=== PATIENT | female | born 1990 | race American Indian/Alaskan Native ===

== ENCOUNTER 2020-09-17 17:08 | Emergency (ER) | payer SELFPAY ==
[2020-09-17 19:19] LABS: Mean Corpuscular HGB Conc 30 % (30-34); Platelet Count 399 K/mm3 (140-440); Red Blood Count 4.85 M/mm3 (3.65-5.03)
[2020-09-17 19:23] LABS: Hemoglobin 9.3 gm/dl (10.1-14.3)
[2020-09-17 19:34] LABS: Hematocrit 30.8 % (30.3-42.9); Mean Corpuscular Volume 64 fl (79-97)
[2020-09-17 19:46] LABS: Alanine Aminotransferase 14 units/L (7-56); Albumin 4.9 g/dL (3.9-5); BUN/Creatinine Ratio 21; Blood Urea Nitrogen 17 mg/dL (7-17); Calcium 10.2 mg/dL (8.4-10.2); Hemolysis Index 10
[2020-09-17] MEDS ORDERED: ONDANSETRON 4 MG/2 ML INJ IV ONE (20:00)
[2020-09-17] MEDS ORDERED: MORPHINE 4 MG/1 ML INJ IV ONE (20:00)
[2020-09-17] MEDS ORDERED: FAMOTIDINE 20 MG/2 ML INJ IV ONE (20:00)
[2020-09-17] MEDS ORDERED: SODIUM CHLORIDE 0.9% 1000 ML 1,000 ML IV ONE (20:01)
[2020-09-17 21:33] LABS: Total Cells Counted 100
[2020-09-17 21:34] LABS: Anisocytosis 1+; Hypochromasia 2+
--- NOTE | 2020-09-17 21:54 | Cat Scan Report ---
CT ABDOMEN AND PELVIS WITH CONTRAST INDICATION / CLINICAL INFORMATION: Abdominal pain - N/V/D. TECHNIQUE: Axial CT images were obtained through the abdomen and pelvis after IV contrast. All CT scans at this location are performed using CT dose reduction for ALARA by means of automated exposure control. COMPARISON: None available. FINDINGS: LOWER CHEST: No significant abnormality. LIVER: No significant abnormality. GALLBLADDER: No significant abnormality. BILE DUCTS: No significant abnormality. PANCREAS: No significant abnormality. SPLEEN: No significant abnormality. ADRENALS: No significant abnormality. RIGHT KIDNEY / URETER: Multiple punctate calcified pelvicalyceal stones. No hydronephrosis. LEFT KIDNEY / URETER: Multiple punctate calcified pelvicalyceal stones. No hydronephrosis. STOMACH / SMALL BOWEL: No significant abnormality. No mechanical bowel obstruction. COLON: No significant abnormality. APPENDIX: No significant abnormality. Stranding noted in the right lower quadrant abdomen. PERITONEUM: Trace free fluid in the pelvis likely physiologic. No free air. No complex fluid collecti on. LYMPH NODES: No significant adenopathy. AORTA / ARTERIES: No significant abnormality. IVC / VEINS: No significant abnormality. URINARY BLADDER: Distended urinary bladder is noted. No calcite stone burden. REPRODUCTIVE ORGANS: Physiologic changes are noted of the uterus and bilateral ovaries with fluid not ed in the endometrial cavity. ADDITIONAL FINDINGS: None. SKELETAL SYSTEM: No significant abnormality. IMPRESSION: 1. Physiologic changes are noted of the uterus and bilateral ovaries with fluid noted in the endometr ial cavity. 2. Tiny punctate bilateral pelvicalyceal stones without evidence for hydronephrosis. Signer Name: Wilfrido Rodriguez MD Signed: 09/17/2020 9:49 PM Workstation Name: [id number]
[2020-09-17 21:57] LABS: Ovalocytes Rare; Target Cells Rare; Tear Drop Cells Rare
[2020-09-17 21:58] LABS: Burr Cells Rare; Platelet Estimate Consistent w Auto
[2020-09-17 22:24] LABS: Bilirubin,Urine NEG (Negative); Blood,Urine LG (Negative); Color,Urine Yellow (Yellow); Mucus,Urine 2+ /HPF; Urobilinogen,Urine < 2.0 mg/dL (<2.0)
--- NOTE | 2020-09-17 22:43 | Emergency Department Report ---
ED Abdominal Pain HPI - General Chief Complaint: Abdominal Pain Stated Complaint: STOMACH PAIN/CLOTS EXTREME PAIN Source: patient Mode of arrival: Ambulatory Limitations: No Limitations - History of Present Illness Initial Comments: Patient is a 30-year-old -Bul[place] female with a history of colitis who presents to the ED with complaint of acute onset persistent diffuse abdominal pain, that radiates to the lower abdomen diffusely with nausea and vomiting and mild diarrhea for the last 4 days. Patient also states that her symptoms began when she started having her menstrual cycle 4 days ago and states that she usually experiences similar symptoms every month whenever she has her menstrual cycle, and that the painful cramps usually leads to nausea and vomiting and sometimes diarrhea. Patient denies dizziness, syncope, fever, chills, dysuria, urinary frequency and urgency, vaginal discharge, low back pain, chest pain or shortness of breath, headache, sore throat or change in vision and dyspareunia. MD Complaint: abdominal pain, other (nausea, vomiting, diarrhea; dysmenorrhea) -: Sudden, days(s) (4) Location: LLQ, RLQ, suprapubic Radiation: LLQ, RLQ, suprapubic Migration to: no migration Severity scale (0 -10): 8 Quality: cramping, aching, sharp Consistency: constant Improves With: nothing Worsens With: nothing Context: other (currently on menstrual cycle) Associated Symptoms: denies other symptoms, nausea, vomiting, diarrhea. denies: fever, chills, dysuria, hematemesis, hematochezia, melena, hematuria, anorexia, syncope, other Treatments Prior to Arrival: NSAIDs - Related Data LMP Date: 09/14/20 Previous Rx's Medication Instructions Recorded Last Taken Type Dicyclomine [Bentyl] 20 mg PO Q6H PRN #24 tablet 09/17/20 Unknown Rx Ibuprofen [Motrin] 600 mg PO Q8H PRN #30 tablet 09/17/20 Unknown Rx Ondansetron [Zofran Odt] 4 mg PO Q6HR PRN #20 tab.rapdis 09/17/20 Unknown Rx cephALEXin [Keflex] 500 mg PO Q12HR #20 cap 09/17/20 Unknown Rx Allergies Allergy/AdvReac Type Severity Reaction Status Date / Time No Known Allergies Allergy Unverified 09/17/20 17:37 ED Review of Systems ROS: Stated complaint: STOMACH PAIN/CLOTS EXTREME PAIN Other details as noted in HPI Constitutional: denies: chills, fever Eyes: denies: eye pain, eye discharge, vision change ENT: denies: ear pain, throat pain Respiratory: denies: cough, shortness of breath, wheezing Cardiovascular: denies: chest pain, palpitations Endocrine: no symptoms reported Gastrointestinal: abdominal pain, nausea, vomiting, diarrhea Genitourinary: hematuria, abnormal menses (menstrual cycle), other (dys menorrhea). denies: urgency, dysuria, discharge Musculoskeletal: denies: back pain, joint swelling, arthralgia Skin: denies: rash, lesions Neurological: denies: headache, weakness, paresthesias Psychiatric: denies: anxiety, depression Hematological/Lymphatic: denies: easy bleeding, easy bruising ED Past Medical Hx - Past Medical History Previous Medical History?: No - Surgical History Past Surgical History?: No - Medications Home Medications: Home Medications Medication Instructions Recorded Confirmed Last Taken Type Dicyclomine [Bentyl] 20 mg PO Q6H PRN #24 tablet 09/17/20 Unknown Rx Ibuprofen [Motrin] 600 mg PO Q8H PRN #30 tablet 09/17/20 Unknown Rx Ondansetron [Zofran Odt] 4 mg PO Q6HR PRN #20 tab.rapdis 09/17/20 Unknown Rx cephALEXin [Keflex] 500 mg PO Q12HR #20 cap 09/17/20 Unknown Rx ED Physical Exam - General Limitations: No Limitations General appearance: alert, in no apparent distress - Head Head exam: Present: atraumatic, normocephalic, normal inspection - Eye Eye exam: Present: normal appearance, PERRL, EOMI Pupils: Present: normal accommodation - ENT ENT exam: Present: normal exam, normal orophraynx, mucous membranes moist, TM's normal bilaterally, normal external ear exam - Neck Neck exam: Present: normal inspection, full ROM - Respiratory Respiratory exam: Present: normal lung sounds bilaterally. Absent: respiratory distress, wheezes, rales, rhonchi, stridor, chest wall tenderness, accessory muscle use, prolonged expiratory - Cardiovascular Cardiovascular Exam: Present: regular rate, normal rhythm, normal heart sounds. Absent: systolic murmur, diastolic murmur, rubs, gallop - GI/Abdominal GI/Abdominal exam: Present: soft, tenderness (Palpable diffuse lower abdomen), normal bowel sounds. Absent: distended, guarding, rebound, rigid, hyperactive bowel sounds, organomegaly, mass, pulsatile mass - Speculum exam: Present: other (Pelvic exam deferred.) - Extremities Exam Extremities exam: Present: normal inspection, full ROM, normal capillary refill. Absent: tenderness, pedal edema, joint swelling, calf tenderness - Back Exam Back exam: Present: normal inspection, full ROM. Absent: tenderness, CVA tenderness (R), muscle spasm, vertebral tenderness - Neurological Exam Neurological exam: Present: alert, oriented X3, CN II-XII intact, normal gait, reflexes normal - Psychiatric Psychiatric exam: Present: normal affect, normal mood - Skin Skin exam: Present: warm, dry, intact, normal color. Absent: rash ED Course Vital Signs 09/17/20 22:59 Temperature 98.6 F Pulse Rate 82 Respiratory 17 Rate Blood Pressure 105/67 [Right] O2 Sat by Pulse 99 Oximetry ED Medical Decision Making - Lab Data Result diagrams: 09/17/20 18:59 09/17/20 18:59 - Radiology Data Radiology results: report reviewed, image reviewed Findings [facility] [address] [place] [address] Cat Scan Report Signed Patient: VJ PENNY MR# : [id number] : 1990 Acct:[id number] Age/Sex: 30 / F ADM Date: 09/17/20 Loc: ED Attending Dr: Ordering Physician: MARTHA ROMERO Date of Service: 09/17/20 Procedure(s): CT abdomen pelvis w con Accession Number(s): [id number] cc: MARTHA ROMERO CT ABDOMEN AND PELVIS WITH CONTRAST INDICATION / CLINICAL INFORMATION: Abdominal pain - N/V/D. TECHNIQUE: Axial CT images were obtained through the abdomen and pelvis after IV contrast. All CT scans at this location are performed using CT dose reduction for ALARA by means of automated exposure control. COMPARISON: None available. FINDINGS: LOWER CHEST: No significant abnormality. LIVER: No significant abnormality. GALLBLADDER: No significant abnormality. BILE DUCTS: No significant abnormality. PANCREAS: No significant abnormality. SPLEEN: No significant abnormality. ADRENALS: No significant abnormality. RIGHT KIDNEY / URETER: Multiple punctate calcified pelvicalyceal stones. No hydronephrosis. LEFT KIDNEY / URETER: Multiple punctate calcified pelvicalyceal stones. No hyd ronephrosis. STOMACH / SMALL BOWEL: No significant abnormality. No mechanical bowel obstruction. COLON: No significant abnormality. APPENDIX: No significant abnormality. Stranding noted in the right lower quadrant abdomen. PERITONEUM: Trace free fluid in the pelvis likely physiologic. No free air. No complex fluid collection. LYMPH NODES: No significant adenopathy. AORTA / ARTERIES: No significant abnormality. IVC / VEINS: No significant abnormality. URINARY BLADDER: Distended urinary bladder is noted. No calcite stone burden. REPRODUCTIVE ORGANS: Physiologic changes are noted of the uterus and bilateral ovaries with fluid noted in the endometrial cavity. ADDITIONAL FINDINGS: None. SKELETAL SYSTEM: No significant abnormality. IMPRESSION: 1. Physiologic changes are noted of the uterus and bilateral ovaries with fluid noted in the endometrial cavity. 2. Tiny punctate bilateral pelvicalyceal stones without evidence for hydronephrosis. Signer Name: Rodri Clement MD Signed: 09/17/2020 9:49 PM Workstation Name: [id number] Transcribed By: Dictated By: RODRI CLEMENT Electronically Authenticated By: RODRI CLEMENT Signed Date/Time: 09/17/202148 DD/ 41 TD/TT: - Medical Decision Making This is a 30-year-old -Bulgarian female with a history of colitis who presents to the ED with complaint of acute onset persistent diffuse abdominal pain, that radiates to the lower abdomen diffusely with nausea and vomiting and mild diarrhea for the last 4 days. Patient also states that her symptoms began when she started having her menstrual cycle 4 days ago and states that she usually experiences similar symptoms every month whenever she has her menstrual cycle, and that the painful cramps usually leads to nausea and vomiting and sometimes diarrhea. In the ED, patient is alert and oriented x3 and is not in distress. Patient however appears to be in significant pain. Patient was t reated for pain in the ED and also given normal saline 1 L IV bolus x1, and also was treated with antiemetics in the ED. Lab test results were reviewed and showed acute leukocytosis of 14,500 and mild urinary tract infection in urinalysis The abdomen pelvis CT scan with contrast showed physiologic changes noted of the uterus and bilateral ovaries with fluid noted in the endometrial cavity. It also showed tiny punctate bilateral pelvicalyceal stones without evidence for hydronephrosis. On reevaluation, patient's pain is well controlled medications. Patient has not had any nausea or vomiting while in the ED by actively treated with antiemetics. Patient was therefore discharged home on pain medications and antiemetics and advised to maintain a clear liquid diet for 12 to 24 hours, plenty of fluids, take medications as prescribed and follow-up with her primary care physician in 5 to 7 days for reevaluation. Patient was advised return to ED immediately if symptoms get worse. - Differential Diagnosis Appendicitis; ; UTI; Ovarian cyst; Colitis; Dysmenorrhea Critical care attestation.: If time is entered above; I have spent that time in minutes in the direct care of this critically ill patient, excluding procedure time. ED Disposition Clinical Impression: Acute bilateral lower abdominal pain, Nausea, vomiting and diarrhea, Severe dysmenorrhea, Acute urinary tract infection Disposition: TO HOME OR SELFCARE Is pt being admited?: No Does the pt Need Aspirin: No Condition: Stable Instructions: Nausea and Vomiting, Adult, [id number], Urinary Tract Infection, Adult, [id number], Abdominal Pain, Adult, [id number], Dysmenorrhea, [id number], Abdominal Pain (ED) Additional Instructions: All lab test results were reviewed and are all nonactionable except for mild urinary tract infection in urinalysis. The abdomen pelvis CT scan without contrast showed no acute abnormalities except for chronic kidney stones. Symptoms are likely due to dysmenorrhea clinic your symptoms worsen on triggering nausea and vomiting. Take medications with food, drink plenty of fluids and follow-up with your primary care physician in 5 to 7 days for reevaluation. Return to the ED immediately if symptoms get worse. Prescriptions: Dicyclomine [Bentyl] 20 mg PO Q6H PRN #24 tablet PRN Reason: abdominal pain cephALEXin [Keflex] 500 mg PO Q12HR #20 cap Ibuprofen [Motrin] 600 mg PO Q8H PRN #30 tablet PRN Reason: Pain Ondansetron [Zofran Odt] 4 mg PO Q6HR PRN #20 tab.rapdis PRN Reason: Nausea Referrals: [facility] [Provider Group] - 7-10 days Time of Disposition: 22:47 Print Language: HUNGARIAN
[2020-09-17 23:00] VITALS: BP 105/67
[2020-09-18] MEDS ORDERED: KETOROLAC 30 MG/1 ML INJ IV ONE (00:59)
== END 2020-09-18 00:30 | disposition home or self-care (01) ==
LOC: ED 17:08
DX: N39.0 Urinary tract infection, site not specified (principal); N94.6 Dysmenorrhea, unspecified; R19.7 Diarrhea, unspecified; R11.2 Nausea with vomiting, unspecified; R10.31 Right lower quadrant pain; R10.32 Left lower quadrant pain; Z79.899 Other long term (current) drug therapy
CPT/HCPCS: 36415; 74177; 80053; 81001; 83690; 84703; 85007; 85025; 87086; 96361; 96374; 96375; 99284; J2270; J2405; J7030; Q9967

== ENCOUNTER 2020-09-19 10:14 | Emergency (ER) | payer SELFPAY ==
[2020-09-19 11:21] LABS: Basophils # (Auto) 0.1 K/mm3 (0.0-0.1); Basophils % (Auto) 0.6 % (0.0-1.8); Eosinophils % (Auto) 0.3 % (0.0-4.3); Lymphocytes # (Auto) 1.4 K/mm3 (1.2-5.4); Lymphocytes % (Auto) 13.2 % (13.4-35.0); Mean Corpuscular HGB Conc 30 % (30-34); Monocytes # (Auto) 0.9 K/mm3 (0.0-0.8); Monocytes % (Auto) 8.2 % (0.0-7.3); Platelet Count 370 K/mm3 (140-440); Red Blood Count 4.78 M/mm3 (3.65-5.03)
[2020-09-19 11:24] LABS: Hematocrit 30.6 % (30.3-42.9); Hemoglobin 9.1 gm/dl (10.1-14.3); Mean Corpuscular Volume 64 fl (79-97); Red Cell Distribution Width 21.4 % (13.2-15.2)
--- NOTE | 2020-09-19 11:38 | Event Note ---
ED Screening Note ED Screening Note: n/v states meds not helping 2019 had a colonscopy +marijuana This initial assessment/diagnostic orders/clinical plan/treatment(s) is/are subject to change based on patients health status, clinical progression and re- assessment by fellow clinical providers in the ED. Further treatment and workup at subsequent clinical providers discretion. Patient/guardian urged not to elope from the ED as their condition may be serious if not clinically assessed and managed. Initial orders include: labs, UA, urine preg
[2020-09-19 11:41] LABS: Alanine Aminotransferase 22 units/L (7-56); Albumin 4.5 g/dL (3.9-5); Blood Urea Nitrogen 14 mg/dL (7-17); Hemolysis Index 3
[2020-09-19 11:46] LABS: BUN/Creatinine Ratio 20
[2020-09-19 12:50] LABS: Bacteria,Urine 1+ /HPF (Negative); Bilirubin,Urine NEG (Negative); Blood,Urine LG (Negative); Color,Urine Yellow (Yellow); Mucus,Urine 3+ /HPF
[2020-09-19] MEDS ORDERED: METOCLOPRAMIDE 10 MG/2 ML INJ IV ONE (13:34)
[2020-09-19] MEDS ORDERED: diphenhydrAMINE 50 MG/ML VIAL IV ONE (13:34)
[2020-09-19] MEDS ORDERED: cefTRIAXone/NS 1 GM/50 ML 1 GM/50 ML BAG IV ONE (13:34)
[2020-09-19] MEDS ORDERED: SODIUM CHLORIDE 0.9% 1000 ML 1,000 ML IV ONE (13:34)
--- NOTE | 2020-09-19 15:05 | Emergency Department Report ---
ED General Adult HPI - General Chief complaint: Abdominal Pain Stated complaint: CANT EAT/PAIN/NAUSEA Time Seen by Provider: 09/19/20 11:36 Source: patient Mode of arrival: Ambulatory Limitations: No Limitations - History of Present Illness Initial comments: Patient is a 30-year-old female presents emergency room with points of nausea, vomiting, diarrhea that began approximately 6 days ago. She has associated abdominal cramping but denies any severe pain. She states that she is not tolerating p.o. intake. She was evaluated in the emergency department 2 days ago and had a CT abdomen pelvis with IV contrast which showed no acute process. She was given prescriptions for UTI and for vomiting. She states that despite the Zofran she has continued to have vomiting. She is a current heavy marijuana smoker. No past medical history. No allergies medications. Severity scale (0 -10): 0 - Related Data Previous Rx's Medication Instructions Recorded Last Taken Type Dicyclomine [Bentyl] 20 mg PO Q6H PRN #24 tablet 09/17/20 Unknown Rx Ibuprofen [Motrin] 600 mg PO Q8H PRN #30 tablet 09/17/20 Unknown Rx Ondansetron [Zofran Odt] 4 mg PO Q6HR PRN #20 tab.rapdis 09/17/20 Unknown Rx cephALEXin [Keflex] 500 mg PO Q12HR #20 cap 09/17/20 Unknown Rx Metoclopramide [Reglan] 10 mg PO Q8HR PRN #12 tab 09/19/20 Unknown Rx Promethazine HCl [Phenergan SUPPOS] 25 mg RC Q8HR PRN #7 supp.rect 09/19/20 Unknown Rx Allergies Allergy/AdvReac Type Severity Reaction Status Date / Time No Known Allergies Allergy Unverified 09/17/20 17:37 ED Review of Systems ROS: Stated complaint: CANT EAT/PAIN/NAUSEA Other details as noted in HPI Comment: All other systems reviewed and negative ED Past Medical Hx - Past Medical History Previous Medical History?: No - Surgical History Past Surgical History?: No - Social History Smoking Status: Never Smoker Substance Use Type: None - Medications Home Medications: Home Medications Medication Instructions Recorded Confirmed Last Taken Type Dicyclomine [Bentyl] 20 mg PO Q6H PRN #24 tablet 09/17/20 Unknown Rx Ibuprofen [Motrin] 600 mg PO Q8H PRN #30 tablet 09/17/20 Unknown Rx Ondansetron [Zofran Odt] 4 mg PO Q6HR PRN #20 tab.rapdis 09/17/20 Unknown Rx cephALEXin [Keflex] 500 mg PO Q12HR #20 cap 09/17/20 Unknown Rx Metoclopramide [Reglan] 10 mg PO Q8HR PRN #12 tab 09/19/20 Unknown Rx Promethazine HCl [Phenergan SUPPOS] 25 mg RC Q8HR PRN #7 supp.rect 09/19/20 Unknown Rx ED Physical Exam - General Limitations: No Limitations General appearance: alert, in no apparent distress - Head Head exam: Present: atraumatic, normocephalic - Eye Eye exam: Present: normal appearance - ENT ENT exam: Present: mucous membranes moist - Respiratory Respiratory exam: Present: normal lung sounds bilaterally. Absent: respiratory distress, wheezes, rales, rhonchi, stridor, chest wall tenderness, accessory muscle use, decreased breath sounds, prolonged expiratory - Cardiovascular Cardiovascular Exam: Present: regular rate, normal rhythm, normal heart sounds. Absent: systolic murmur, diastolic murmur, rubs, gallop - GI/Abdominal GI/Abdominal exam: Present: soft, normal bowel sounds. Absent: distended, tenderness, guarding, rebound, rigid - Neurological Exam Neurological exam: Present: alert, oriented X3 - Psychiatric Psychiatric exam: Present: normal affect, normal mood - Skin Skin exam: Present: warm, dry, intact ED Course Vital Signs 09/19/20 09/19/20 10:19 18:11 Temperature 98.0 F Pulse Rate 54 L 63 Respiratory 18 18 Rate Blood Pressure 123/70 121/80 [Left] O2 Sat by Pulse 100 100 Oximetry ED Medical Decision Making - Lab Data Result diagrams: 09/19/20 11:00 09/19/20 11:00 Lab Results 09/19/20 09/19/20 09/19/20 Range/Units 11:00 11:00 12:12 WBC 10.5 (4.5-11.0) K/mm3 RBC 4.78 (3.65-5.03) M/mm3 Hgb 9.1 L (10.1-14.3) gm/dl Hct 30.6 (30.3-42.9) % MCV 64 L (79-97) fl MCH 19 L (28-32) pg MCHC 30 (30-34) % RDW 21.4 H (13.2-15.2) % Plt Count 370 (140-440) K/mm3 Lymph % (Auto) 13.2 L (13.4-35.0) % [place] % (Auto) 8.2 H (0.0-7.3) % Eos % (Auto) 0.3 (0.0-4.3) % Baso % (Auto) 0.6 (0.0-1.8) % Lymph # (Auto) 1.4 (1.2-5.4) K/mm3 [place] # (Auto) 0.9 H (0.0-0.8) K/mm3 Eos # (Auto) 0.0 (0.0-0.4) K/mm3 Baso # (Auto) 0.1 (0.0-0.1) K/mm3 Seg Neutrophils % 77.7 H (40.0-70.0) % Seg Neutrophils # 8.2 H (1.8-7.7) K/mm3 Sodium 137 (137-145) mmol/L Potassium 3.4 L (3.6-5.0) mmol/L Chloride 103.0 (98-107) mmol/L Carbon Dioxide 23 (22-30) mmol/L Anion Gap 14 mmol/L BUN 14 (7-17) mg/dL Creatinine 0.7 (0.6-1.2) mg/dL Estimated GFR > 60 ml/min BUN/Creatinine Ratio 20 % Glucose 95 (65-100) mg/dL Calcium 10.0 (8.4-10.2) mg/dL Total Bilirubin 0.90 (0.1-1.2) mg/dL AST 26 (5-40) units/L ALT 22 (7-56) units/L Alkaline Phosphatase 90 (35-129) units/L Total Protein 8.3 H (6.3-8.2) g/dL Albumin 4.5 (3.9-5) g/dL Albumin/Globulin Ratio 1.2 % Lipase 33 (13-60) units/L Urine Color Yellow (Yellow) Urine Turbidity Slightly-cloudy (Clear) Urine pH 5.0 (5.0-7.0) Ur Specific [place] 1.026 (1.003-1.030) Urine Protein 100 mg/dl (Negative) mg/dL Urine Glucose (UA) Neg (Negative) mg/dL Urine Ketones Tr (Negative) mg/dL Urine Blood Lg (Negative) Urine Nitrite Neg (Negative) Urine Bilirubin Neg (Negative) Urine Urobilinogen 2.0 (<2.0) mg/dL Ur Leukocyte Esterase Sm (Negative) Urine WBC (Auto) 14.0 H (0.0-6.0) /HPF Urine RBC (Auto) 6.0 (0.0-6.0) /HPF U Epithel Cells (Auto) 22.0 H (0-13.0) /HPF Urine Bacteria (Auto) 1+ (Negative) /HPF Urine Mucus 3+ /HPF - Medical Decision Making Patient is a 30-year-old female presents emergency room with points of nausea, vomiting, diarrhea that began approximately 6 days ago. She has associated abdominal cramping but denies any severe pain. She states that she is not tolerating p.o. intake. She was evaluated in the emergency department 2 days ago and had a CT abdomen pelvis with IV contrast which showed no acute process. She was given prescriptions for UTI and for vomiting. She states that despite the Zofran she has continued to have vomiting. She is a current heavy marijuana smoker. No past medical history. No allergies medications. Vitals are stable. No abnormality on physical exam as documented in chart. Labs with mild hypokalemia, otherwise normal. Repleted with K-Dur. She has no leukocytosis. UA does have small amount of white blood cells and small leukocyte esterase but there are many epithelial cells, could be due to contamination. She just began taking Keflex yesterday. Patient given 1 L IV fluids, antiemetics, ceftriaxone. Patient was feeling much better and ready to go home. She had no further episodes of vomiting while the emergency department. She was able to tolerate p.o. intake without difficulty. Symptoms likely related to viral gastroenteritis versus cannabinoid hyperemesis. Patient given prescription for reglan and Phenergan suppositories. Advised patient Please use medication as prescribed as needed. Increase your fluid intake over the next several days. Eat a bland liquid diet and slowly advance your diet as tolerated. Avoid anything sugary or greasy. Please stop smoking marijuana. Follow-up with a primary care doctor. Follow-up with a GI doctor. Return to emergency room for any new or worsening symptoms. Critical care attestation.: If time is entered above; I have spent that time in minutes in the direct care of this critically ill patient, excluding procedure time. ED Disposition Clinical Impression: Nausea vomiting and diarrhea Disposition: TO HOME OR SELFCARE Is pt being admited?: No Does the pt Need Aspirin: No Condition: Stable Instructions: Viral Gastroenteritis, Adult, Cannabinoid Hyperemesis Syndrome, Abdominal Pain (ED) Additional Instructions: Please use medication as prescribed as needed. Increase your fluid intake over the next several days. Eat a bland liquid diet and slowly advance your diet as tolerated. Avoid anything sugary or greasy. Please stop smoking marijuana. Follow-up with a primary care doctor. Follow-up with a GI doctor. Return to emergency room for any new or worsening symptoms. Prescriptions: Promethazine HCl [Phenergan SUPPOS] 25 mg RC Q8HR PRN #7 supp.rect PRN Reason: Nausea And Vomiting Metoclopramide [Reglan] 10 mg PO Q8HR PRN #12 tab PRN Reason: Nausea And Vomiting Referrals: PRIMARY MD KIANNA [Primary Care Provider] - 2-3 Days [facility] [Provider Group] - 2-3 Days CHRISS TRIVEDI MD [Staff Physician] - 2-3 Days [facility] [Provider Group] - 2-3 Days Forms: Work/School Release Form(ED) Time of Disposition: 16:58 Print Language: VIETNAMESE
[2020-09-19] MEDS ORDERED: POTASSIUM CHLORIDE ER 20 MEQ TAB PO ONE (16:11)
[2020-09-19] MEDS ORDERED: ONDANSETRON 4 MG/2 ML INJ IV ONE (17:08)
[2020-09-19 18:12] VITALS: BP 121/80
== END 2020-09-19 18:00 | disposition home or self-care (01) ==
LOC: ED 10:14
DX: R11.2 Nausea with vomiting, unspecified (principal); R19.7 Diarrhea, unspecified; Z79.899 Other long term (current) drug therapy
CPT/HCPCS: 36415; 80053; 81001; 83690; 85025; 87086; 96365; 96366; 96375; 99283; J0696; J1200; J2405; J2765; J7030

== ENCOUNTER 2020-12-04 14:15 | Emergency (ER) | payer SELFPAY ==
--- NOTE | 2020-12-04 15:24 | Event Note ---
ED Screening Note Date of service: 12/04/20 Time: 15:22 ED Screening Note: 30-year-old -L[place] female presents to the emergency room for a 2-day history of lower abdominal pain with nausea and vomiting. Patient states she is currently on her menstrual period started 12/02/2020. Patient does admit that she smokes cigarettes and smokes weed. States she last smoked weed was yesterday. Patient was seen here last month for the same complaints. This initial assessment/diagnostic orders/clinical plan/treatment(s) is/are subject to change based on patients health status, clinical progression and re- assessment by fellow clinical providers in the ED. Further treatment and workup at subsequent clinical providers discretion. Patient/guardian urged not to elope from the ED as their condition may be serious if not clinically assessed and managed. Initial orders include:
[2020-12-04 16:20] LABS: Mean Corpuscular HGB Conc 30 % (30-34); Mean Corpuscular Volume 70 fl (79-97); Platelet Count 287 K/mm3 (140-440); Red Blood Count 4.39 M/mm3 (3.65-5.03)
[2020-12-04 16:22] LABS: Hematocrit 30.7 % (30.3-42.9); Hemoglobin 9.2 gm/dl (10.1-14.3); Red Cell Distribution Width 23.2 % (13.2-15.2)
[2020-12-04 16:41] LABS: Alanine Aminotransferase 17 units/L (7-56); Albumin 4.5 g/dL (3.9-5); Blood Urea Nitrogen 11 mg/dL (7-17); Calcium 9.5 mg/dL (8.4-10.2); Hemolysis Index 16
[2020-12-04 16:46] LABS: BUN/Creatinine Ratio 16
[2020-12-04] MEDS ORDERED: MORPHINE 4 MG/1 ML INJ IV ONE ×2 (16:50→23:56)
[2020-12-04] MEDS ORDERED: ONDANSETRON 4 MG/2 ML INJ IV ONE ×2 (16:50→23:56)
[2020-12-04] MEDS ORDERED: SODIUM CHLORIDE 0.9% 1000 ML 1,000 ML IV ONE ×2 (16:50→23:56)
[2020-12-04 17:17] LABS: Amphetamine Screen,Urine Negative; Benzodiazepines Screen,Urine Negative; Methadone Screen,Urine Negative; Opiate Screen,Urine Negative
[2020-12-04 17:24] LABS: Bilirubin,Urine NEG (Negative); Blood,Urine SM (Negative); Color,Urine Yellow (Yellow); Mucus,Urine 3+ /HPF; Urobilinogen,Urine < 2.0 mg/dL (<2.0)
[2020-12-04] MEDS ORDERED: ONDANSETRON 4 MG ODT TAB PO ONE (17:27)
[2020-12-04 17:28] LABS: Cannabinoid Screen,Urine Positive; Cocaine Screen,Urine Negative
[2020-12-04 17:31] LABS: HCG Qualitative,Urine Negative (Negative)
[2020-12-04 19:01] LABS: Total Cells Counted 100
[2020-12-04 19:02] LABS: Anisocytosis 2+; Hypochromasia 2+
[2020-12-04 19:03] LABS: Burr Cells Rare; Ovalocytes Rare; Tear Drop Cells Rare
[2020-12-04 19:05] LABS: Large Platelets Rare; Platelet Estimate Cons
--- NOTE | 2020-12-04 21:14 | Cat Scan Report ---
CT ABDOMEN AND PELVIS WITH CONTRAST INDICATION / CLINICAL INFORMATION: Patient complains of lower abd pain with N/V, Leukocytosis. TECHNIQUE: Axial CT images were obtained through the abdomen and pelvis after IV contrast. All CT scans at this location are performed using CT dose reduction for ALARA by means of automated exposure control. COMPARISON: 09/17/2020 FINDINGS: LOWER CHEST: No significant abnormality. LIVER: No significant abnormality. GALLBLADDER: No significant abnormality. BILE DUCTS: No significant abnormality. PANCREAS: No significant abnormality. SPLEEN: No significant abnormality. ADRENALS: No significant abnormality. RIGHT KIDNEY / URETER: Interval passage of previously noted punctate pelvicalyceal stones. No hydrone phrosis. LEFT KIDNEY / URETER: Interval passage of previously noted punctate pelvicalyceal stones. No hydronep hrosis. STOMACH / SMALL BOWEL: No significant abnormality. No mechanical bowel obstruction. COLON: No significant abnormality. Distal colon is collapsed. APPENDIX: No significant abnormality. PERITONEUM: Free fluid in the pelvis likely physiologic. No free air. No fluid collection. LYMPH NODES: No significant adenopathy. AORTA / ARTERIES: No significant abnormality. IVC / VEINS: No significant abnormality. URINARY BLADDER: No significant abnormality. No calcified stone burden. REPRODUCTIVE ORGANS: Physiologic changes are again noted of the uterus and bilateral ovaries. Fluid n oted in the endometrial and vaginal canals, similar to prior exam. ADDITIONAL FINDINGS: None. SKELETAL SYSTEM: No significant abnormality. IMPRESSION: 1. No acute inflammatory process of the abdomen or pelvis. 2. Previously noted punctate bilateral pelvicalyceal stones are no longer visualized. No hydronephros is. 3. Physiologic changes to the uterus and bilateral ovaries are again noted. Signer Name: Wilfrido Rodriguez MD Signed: 12/04/2020 9:10 PM Workstation Name: [id number]
[2020-12-04] MEDS ORDERED: ONDANSETRON 4 MG ODT TAB PO STA (23:47)
--- NOTE | 2020-12-04 23:59 | Emergency Department Report ---
HPI - General Chief Complaint: Abdominal Pain Time Seen by Provider: 12/04/20 23:50 - HPI HPI: This is a 30-year-old -[place] male presents to the emergency department with a complaint of lower abdominal pain, nausea and vomiting that has been goi ng on for the past 1 to 2 days. The patient says that this happens often during her menstrual cycles. Her last menstrual cycle was started on 12/02. She does have some vaginal bleeding but denies any dysuria, vaginal discharge, fever, lower extremity swelling, chest pain, shortness of breath. She has not taken anything for symptoms prior to presentation. She says that the abdominal pain is 10 out of 10 in intensity. No known aggravating or alleviating factors. No recent travel or sick contacts at home. She does not have a primary care physician or [facility] for follow-up. ED Past Medical Hx - Past Medical History Previous Medical History?: No - Surgical History Past Surgical History?: No - Social History Smoking Status: Never Smoker Substance Use Type: None - Medications Home Medications: Home Medications Medication Instructions Recorded Confirmed Last Taken Type Ibuprofen [Motrin] 600 mg PO Q8H PRN #30 tablet 09/17/20 Unknown Rx cephALEXin [Keflex] 500 mg PO Q12HR #20 cap 09/17/20 Unknown Rx Metoclopramide [Reglan] 10 mg PO Q8HR PRN #12 tab 09/19/20 Unknown Rx Promethazine HCl [Phenergan SUPPOS] 25 mg RC Q8HR PRN #7 supp.rect 09/19/20 Unknown Rx Dicyclomine [Bentyl] 20 mg PO Q6H PRN #20 tablet 12/05/20 Unknown Rx Ondansetron [Zofran ODT TAB] 4 mg PO Q6HR PRN #15 tab.rapdis 12/05/20 Unknown Rx ED Review of Systems ROS: Stated complaint: VOMITING/STOMACH PAIN Other details as noted in HPI Comment: All other systems reviewed and negative Constitutional: denies: chills, fever Eyes: denies: eye pain, vision change ENT: denies: ear pain, throat pain Respiratory: denies: cough, shortness of breath Cardiovascular: denies: chest pain, palpitations Gastrointestinal: abdominal pain, nausea, vomiting Genitourinary: other (Dysmenorrhea). denies: dysuria, discharge Musculoskeletal: denies: back pain, arthralgia Skin: denies: rash, lesions Neurological: denies: headache, weakness Physical Exam - Physical Exam Vital Signs: Vital Signs 12/04/20 14:36 Temperature 97.7 F Pulse Rate 51 L Respiratory 18 Rate Blood Pressure 108/63 [Right] O2 Sat by Pulse 98 Oximetry Physical Exam: GENERAL: The patient is well-developed well-nourished. HENT: Normocephalic. Atraumatic. Patient has moist mucous membranes. EYES: Extraocular motions are intact. NECK: Supple. Trachea is midline. CHEST/LUNGS: Clear to auscultation. There is no respiratory distress noted. HEART/CARDIOVASCULAR: Regular. There is no tachycardia. There is no murmur. ABDOMEN: Abdomen is soft. Lower abdominal tenderness to palpation. No guarding. Patient has normal bowel sounds. There is no abdominal distention. SKIN: Skin is warm and dry. NEURO: The patient is awake, alert, and oriented. The patient is cooperative. The patient has no focal neurologic deficits. Normal speech. MUSCULOSKELETAL: There is no tenderness or deformity. There is no limitation range of motion. ED Course Vital Signs 12/04/20 14:36 Temperature 97.7 F Pulse Rate 51 L Respiratory 18 Rate Blood Pressure 108/63 [Right] O2 Sat by Pulse 98 Oximetry ED Medical Decision Making - Lab Data Result diagrams: 12/04/20 15:58 12/04/20 15:58 Lab Results 12/04/20 12/04/20 12/04/20 Range/Units 15:58 15:58 16:30 WBC 19.1 H (4.5-11.0) K/mm3 RBC 4.39 (3.65-5.03) M/mm3 Hgb 9.2 L (10.1-14.3) gm/dl Hct 30.7 (30.3-42.9) % MCV 70 L (79-97) fl MCH 21 L (28-32) pg MCHC 30 (30-34) % RDW 23.2 H (13.2-15.2) % Plt Count 287 (140-440) K/mm3 Add Manual Diff Complete Total Counted 100 Seg Neutrophils % Scaffold Setter Seg Neuts % (Manual) 96.0 H (40.0-70.0) % Lymphocytes % (Manual) 3.0 L (13.4-35.0) % Monocytes % (Manual) 1.0 (0.0-7.3) % Nucleated RBC % Not Reportable Seg Neutrophils # Man 18.3 H (1.8-7.7) K/mm3 Band Neutrophils # 0.0 K/mm3 Lymphocytes # (Manual) 0.6 L (1.2-5.4) K/mm3 Abs React Lymphs (Man) 0.0 K/mm3 Monocytes # (Manual) 0.2 (0.0-0.8) K/mm3 Eosinophils # (Manual) 0.0 (0.0-0.4) K/mm3 Basophils # (Manual) 0.0 (0.0-0.1) K/mm3 Metamyelocytes # 0.0 K/mm3 Myelocytes # 0.0 K/mm3 Promyelocytes # 0.0 K/mm3 Blast Cells # 0.0 K/mm3 WBC Morphology Not Reportable Hypersegmented Neuts Not Reportable Hyposegmented Neuts Not Reportable Hypogranular Neuts Not Reportable Smudge Cells Not Reportable Toxic Granulation Not Reportable Toxic Vacuolation Not Reportable Dohle Bodies Not Reportable Pelger-Huet Anomaly Not Reportable Brenda Rods Not Reportable Platelet Estimate Cons Clumped Platelets Not Reportable Plt Clumps, EDTA Not Reportable Large Platelets Rare Giant Platelets Not Reportable Platelet Satelliting Not Reportable Plt Morphology Comment Not Reportable RBC Morphology Not Reportable Dimorphic RBCs Not Reportable Polychromasia Not Reportable Hypochromasia 2+ Poikilocytosis Not Reportable Anisocytosis 2+ Microcytosis Not Reportable Macrocytosis Not Reportable Spherocytes Not Reportable Pappenheimer Bodies Not Reportable Sickle Cells Not Reportable Target Cells Not Reportable Tear Drop Cells Rare Ovalocytes Rare Helmet Cells Not Reportable Rea-Ludell Bodies Not Reportable Wayside Rings Not Reportable Vitaly Cells Rare Bite Cells Not Reportable Crenated Cell Not Reportable Elliptocytes Rare Acanthocytes (Spur) Rare Rouleaux Not Reportable Hemoglobin C Crystals Not Reportable Schistocytes Not Reportable Malaria parasites Not Reportable Bruce Bodies Not Reportable Hem Pathologist Commnt No Sodium 139 (137-145) mmol/L Potassium 4.0 (3.6-5.0) mmol/L Chloride 105.7 (98-107) mmol/L Carbon Dioxide 20 L (22-30) mmol/L Anion Gap 17 mmol/L BUN 11 (7-17) mg/dL Creatinine 0.7 (0.6-1.2) mg/dL Estimated GFR > 60 ml/min BUN/Creatinine Ratio 16 % Glucose 143 H (65-100) mg/dL Calcium 9.5 (8.4-10.2) mg/dL Total Bilirubin 0.40 (0.1-1.2) mg/dL AST 22 (5-40) units/L ALT 17 (7-56) units/L Alkaline Phosphatase 87 (35-129) units/L Total Protein 7.5 (6.3-8.2) g/dL Albumin 4.5 (3.9-5) g/dL Albumin/Globulin Ratio 1.5 % Lipase 21 (13-60) units/L Urine Color Yellow (Yellow) Urine Turbidity Clear (Clear) Urine pH 6.0 (5.0-7.0) Ur Specific [place] 1.027 (1.003-1.030) Urine Protein 100 mg/dl (Negative) mg/dL Urine Glucose (UA) Neg (Negative) mg/dL Urine Ketones 20 (Negative) mg/dL Urine Blood Sm (Negative) Urine Nitrite Neg (Negative) Urine Bilirubin Neg (Negative) Urine Urobilinogen < 2.0 (<2.0) mg/dL Ur Leukocyte Esterase Neg (Negative) Urine WBC (Auto) 3.0 (0.0-6.0) /HPF Urine RBC (Auto) 86.0 (0.0-6.0) /HPF U Epithel Cells (Auto) 2.0 (0-13.0) /HPF Urine Mucus 3+ /HPF Urine HCG, Qual Negative (Negative) Urine Opiates Screen Urine Methadone Screen Ur Barbiturates Screen Ur Phencyclidine Scrn Ur Amphetamines Screen U Benzodiazepines Scrn Urine Cocaine Screen U Marijuana (THC) Screen Drugs of Abuse Note 12/04/20 Range/Units 16:30 WBC (4.5-11.0) K/mm3 RBC (3.65-5.03) M/mm3 Hgb (10.1-14.3) gm/dl Hct (30.3-42.9) % MCV (79-97) fl MCH (28-32) pg MCHC (30-34) % RDW (13.2-15.2) % Plt Count (140-440) K/mm3 Add Manual Diff Total Counted Seg Neutrophils % Seg Neuts % (Manual) (40.0-70.0) % Lymphocytes % (Manual) (13.4-35.0) % Monocytes % (Manual) (0.0-7.3) % Nucleated RBC % Seg Neutrophils # Man (1.8-7.7) K/mm3 Band Neutrophils # K/mm3 Lymphocytes # (Manual) (1.2-5.4) K/mm3 Abs React Lymphs (Man) K/mm3 Monocytes # (Manual) (0.0-0.8) K/mm3 Eosinophils # (Manual) (0.0-0.4) K/mm3 Basophils # (Manual) (0.0-0.1) K/mm3 Metamyelocytes # K/mm3 Myelocytes # K/mm3 Promyelocytes # K/mm3 Blast Cells # K/mm3 WBC Morphology Hypersegmented Neuts Hyposegmented Neuts Hypogranular Neuts Smudge Cells Toxic Granulation Toxic Vacuolation Dohle Bodies Pelger-Huet Anomaly Brenda Rods Platelet Estimate Clumped Platelets Plt Clumps, EDTA Large Platelets Giant Platelets Platelet Satelliting Plt Morphology Comment RBC Morphology Dimorphic RBCs Polychromasia Hypochromasia Poikilocytosis Anisocytosis Microcytosis Macrocytosis Spherocytes Pappenheimer Bodies Sickle Cells Target Cells Tear Drop Cells Ovalocytes Helmet Cells Rea-Ludell Bodies Wayside Rings Vitaly Cells Bite Cells Crenated Cell Elliptocytes Acanthocytes (Spur) Rouleaux Hemoglobin C Crystals Schistocytes Malaria parasites Bruce Bodies Hem Pathologist Commnt Sodium (137-145) mmol/L Potassium (3.6-5.0) mmol/L Chloride (98-107) mmol/L Carbon Dioxide (22-30) mmol/L Anion Gap mmol/L BUN (7-17) mg/dL Creatinine (0.6-1.2) mg/dL Estimated GFR ml/min BUN/Creatinine Ratio % Glucose (65-100) mg/dL Calcium (8.4-10.2) mg/dL Total Bilirubin (0.1-1.2) mg/dL AST (5-40) units/L ALT (7-56) units/L Alkaline Phosphatase (35-129) units/L Total Protein (6.3-8.2) g/dL Albumin (3.9-5) g/dL Albumin/Globulin Ratio % Lipase (13-60) units/L Urine Color (Yellow) Urine Turbidity (Clear) Urine pH (5.0-7.0) Ur Specific [place] (1.003-1.030) Urine Protein (Negative) mg/dL Urine Glucose (UA) (Negative) mg/dL Urine Ketones (Negative) mg/dL Urine Blood (Negative) Urine Nitrite (Negative) Urine Bilirubin (Negative) Urine Urobilinogen (<2.0) mg/dL Ur Leukocyte Esterase (Negative) Urine WBC (Auto) (0.0-6.0) /HPF Urine RBC (Auto) (0.0-6.0) /HPF U Epithel Cells (Auto) (0-13.0) /HPF Urine Mucus /HPF Urine HCG, Qual (Negative) Urine Opiates Screen Negative Urine Methadone Screen Negative Ur Barbiturates Screen Negative Ur Phencyclidine Scrn Negative Ur Amphetamines Screen Negative U Benzodiazepines Scrn Negative Urine Cocaine Screen Negative U Marijuana (THC) Screen Positive Drugs of Abuse Note Disclamer - Radiology Data Radiology results: report reviewed CT ABDOMEN AND PELVIS WITH CONTRAST INDICATION / CLINICAL INFORMATION: Patient complains of lower abd pain with N/V, Leukocytosis. TECHNIQUE: Axial CT images were obtained through the abdomen and pelvis after IV contrast. All CT scans at this location are performed using CT dose reduction for ALARA by means of autom ated exposure control. COMPARISON: 09/17/2020 FINDINGS: LOWER CHEST: No significant abnormality. LIVER: No significant abnormality. GALLBLADDER: No significant abnormality. BILE DUCTS: No significant abnormality. PANCREAS: No significant abnormality. SPLEEN: No significant abnormality. ADRENALS: No significant abnormality. RIGHT KIDNEY / URETER: Interval passage of previously noted punctate pelvicalyceal stones. No hydronephrosis. LEFT KIDNEY / URETER: Interval passage of previously noted punctate pelvicalyceal stones. No hydronephrosis. STOMACH / SMALL BOWEL: No significant abnormality. No mechanical bowel obstruction. COLON: No significant abnormality. Distal colon is collapsed. APPENDIX: No significant abnormality. PERITONEUM: Free fluid in the pelvis likely physiologic. No free air. No fluid collection. LYMPH NODES: No significant adenopathy. AORTA / ARTERIES: No significant abnormality. IVC / VEINS: No significant abnormality. URINARY BLADDER: No significant abnormality. No calcified stone burden. REPRODUCTIVE ORGANS: Physiologic changes are again noted of the uterus and bilateral ovaries. Fluid noted in the endometrial and vaginal canals, similar to prior exam. ADDITIONAL FINDINGS: None. SKELETAL SYSTEM: No significant abnormality. IMPRESSION: 1. No acute inflammatory process of the abdomen or pelvis. 2. Previously noted punctate bilateral pelvicalyceal stones are no longer visualized. No hydronephrosis. 3. Physiologic changes to the uterus and bilateral ovaries are again noted. - Medical Decision Making This patient presents to the emergency department with abdominal pain, nausea and vomiting that has been occurring since her most recent menstrual cycle started. She also has a history of this occurring with most of her menstrual cycles. There is some reproducible abdominal tenderness to palpation. However the abdomen is soft, nondistended and nontoxic in appearance. Patient's labs shows a leukocytosis of 19,000. No bandemia. The rest of the labs are mostly unremarkable including her metabolic panel, urinalysis and the patient is not . There is some hematuria seen but the patient is currently in the midst of her menstrual cycle. There are also 20 ketones in the urine showing mild dehydration. Patient had a CT scan of the abdomen and pelvis with IV contrast that did not show any acute intra-abdominal or pelvic process/pathology. An IV was placed and the patient was given some IV fluid resuscitation, IV analgesia and IV antiemetic. She was reevaluated multiple times over the hours and is feeling improved. She was able to pass an oral challenge. Patient will be discharged home with antiemetics and something for her abdominal discomfort. She has been instructed to increase oral rehydration. She has been instructed to follow-up with primary care and to return to the emergency department with any worsening of her symptoms or with any acute distress. Critical care attestation.: If time is entered above; I have spent that time in minutes in the direct care of this critically ill patient, excluding procedure time. ED Disposition Clinical Impression: Dysmenorrhea, Dehydration Nausea & vomiting Qualifiers: Vomiting type: unspecified Vomiting Intractability: unspecified Qualified Code(s): R11.2 - Nausea with vomiting, unspecified Abdominal pain Qualifiers: Abdominal location: lower abdomen, unspecified Qualified Code(s): R10.30 - Low er abdominal pain, unspecified Disposition: TO HOME OR SELFCARE Is pt being admited?: No Condition: Stable Instructions: Abdominal Pain, Adult, Nausea and Vomiting, Adult, Dysmenorrhea, Dehydration, Adult, Abdominal Pain (ED) Additional Instructions: Please follow-up with a primary care physician in the next few days. I have given you a referral for a local primary care physician and a local primary care clinic. I have also given you a referral for you a few different local [facility] groups. Increase your oral rehydration. You have been prescribed a medication that is sedating and therefore should not be taken prior to driving, working, and responsible for children and in no way should be mixed with alcohol of any quantity. Return to the emergency department with any worsening of your symptoms, new or concerning symptoms not addressed during this current emergency department visit, or with any acute distress. Prescriptions: Dicyclomine [Bentyl] 20 mg PO Q6H PRN #20 tablet PRN Reason: abdominal pain Ondansetron [Zofran ODT TAB] 4 mg PO Q6HR PRN #15 tab.rapdis PRN Reason: Nausea Referrals: PRIMARY CAREMD [Primary Care Provider] - 3-5 Days NATIVIDAD LAKHANI MD [Staff Physician] - 3-5 Days [facility] [Provider Group] - 3-5 Days [facility] [Provider Group] - 3-5 Days [facility] [Provider Group] - 3-5 Days Time of Disposition: 01:45
[2020-12-05 01:32] VITALS: BP 103/64
[2020-12-05] MEDS ORDERED: ONDANSETRON 4 MG/2 ML INJ IV ONE (01:42)
[2020-12-05] MEDS ORDERED: ONDANSETRON 4 MG ODT TAB PO ONE (01:48)
== END 2020-12-05 02:06 | disposition home or self-care (01) ==
LOC: ED 14:15
DX: N94.6 Dysmenorrhea, unspecified (principal); E86.0 Dehydration; R10.30 Lower abdominal pain, unspecified; R11.2 Nausea with vomiting, unspecified; Z79.899 Other long term (current) drug therapy
CPT/HCPCS: 36415; 74177; 80053; 80307; 81001; 81025; 83690; 85007; 85025; 96361; 96374; 96375; 99284; J2270; J2405; J7030; Q9967; Q0162

== ENCOUNTER 2020-12-05 12:34 | Emergency (ER) | payer SELFPAY ==
[2020-12-05] MEDS ORDERED: HALOPERIDOL LACTATE 5 MG/1 ML INJ IM ONE (13:05)
[2020-12-05] MEDS ORDERED: LACTATED RINGERS 1,000 ML IV ONE (13:39)
--- NOTE | 2020-12-05 13:43 | Emergency Department Report ---
ED General Adult HPI - General Chief complaint: Nausea/Vomiting/Diarrhea Stated complaint: ABD PAIN Time Seen by Provider: 12/05/20 12:54 Source: patient Mode of arrival: Ambulatory Limitations: No Limitations - History of Present Illness Initial comments: 30-year-old -[place] female patient presents with complaints of continued vomiting and abdominal pain today. Patient was seen here yesterday with the same symptoms and was diagnosed with cannabinoid hyperemesis syndrome. Patient reports she was able to tolerate fluids and her pain was improved prior to discharge yesterday, however since returning home her pain is increasing her vomiting is not controlled with ODT Zofran. She denies any fever/chills/sweats, hematemesis/coffee-ground emesis, or stool changes. She rates her current pain as a 9/10 in severity. - Related Data Previous Rx's Medication Instructions Recorded Last Taken Type Ibuprofen [Motrin] 600 mg PO Q8H PRN #30 tablet 09/17/20 Unknown Rx cephALEXin [Keflex] 500 mg PO Q12HR #20 cap 09/17/20 Unknown Rx Metoclopramide [Reglan] 10 mg PO Q8HR PRN #12 tab 09/19/20 Unknown Rx Promethazine HCl [Phenergan SUPPOS] 25 mg RC Q8HR PRN #7 supp.rect 09/19/20 Unknown Rx Capsaicin 60 gm TP QID PRN 3 Days #1 12/05/20 Unknown Rx cream..g. Dicyclomine [Bentyl] 20 mg PO Q6H PRN #20 tablet 12/05/20 Unknown Rx Metoclopramide [Reglan] 10 mg PO TID PRN #20 tab 12/05/20 Unknown Rx Ondansetron [Zofran ODT TAB] 4 mg PO Q6HR PRN #15 tab.rapdis 12/05/20 Unknown Rx diphenhydrAMINE [Benadryl CAP] 25 mg PO Q8HR PRN #20 capsule 12/05/20 Unknown Rx Allergies Allergy/AdvReac Type Severity Reaction Status Date / Time No Known Allergies Allergy Unverified 09/17/20 17:37 ED Review of Systems ROS: Stated complaint: ABD PAIN Other details as noted in HPI Constitutional: malaise. denies: chills, diaphoresis, fever, weakness Eyes: denies: vision change ENT: denies: throat pain Respiratory: denies: cough, shortness of breath Cardiovascular: denies: chest pain, palpitations, edema, syncope Gastrointestinal: abdominal pain, nausea, vomiting. denies: diarrhea, constipation, hematemesis, melena, hematochezia Skin: denies: rash, change in color Neurological: denies: headache Hematological/Lymphatic: denies: swollen glands ED Past Medical Hx - Past Medical History Previous Medical History?: Yes Additional medical history: heavy menses and anemia - Surgical History Past Surgical History?: Yes - Social History Smoking Status: Current Every Day Smoker Substance Use Type: Alcohol, Marijuana - Medications Home Medications: Home Medications Medication Instructions Recorded Confirmed Last Taken Type Ibuprofen [Motrin] 600 mg PO Q8H PRN #30 tablet 09/17/20 Unknown Rx cephALEXin [Keflex] 500 mg PO Q12HR #20 cap 09/17/20 Unknown Rx Metoclopramide [Reglan] 10 mg PO Q8HR PRN #12 tab 09/19/20 Unknown Rx Promethazine HCl [Phenergan SUPPOS] 25 mg RC Q8HR PRN #7 supp.rect 09/19/20 Unknown Rx Capsaicin 60 gm TP QID PRN 3 Days #1 12/05/20 Unknown Rx cream..g. Dicyclomine [Bentyl] 20 mg PO Q6H PRN #20 tablet 12/05/20 Unknown Rx Metoclopramide [Reglan] 10 mg PO TID PRN #20 tab 12/05/20 Unknown Rx Ondansetron [Zofran ODT TAB] 4 mg PO Q6HR PRN #15 tab.rapdis 12/05/20 Unknown Rx diphenhydrAMINE [Benadryl CAP] 25 mg PO Q8HR PRN #20 capsule 12/05/20 Unknown Rx ED Physical Exam - General Limitations: No Limitations General appearance: alert, in no apparent distress - Head Head exam: Present: atraumatic, normocephalic - Eye Eye exam: Present: normal appearance. Absent: scleral icterus - Neck Neck exam: Present: normal inspection - Respiratory Respiratory exam: Present: normal lung sounds bilaterally. Absent: respiratory distress - Cardiovascular Cardiovascular Exam: Present: regular rate - GI/Abdominal GI/Abdominal exam: Present: soft, tenderness (Generalized), normal bowel sounds. Absent: distended, guarding, rebound, rigid - Extremities Exam Extremities exam: Present: full ROM - Back Exam Back exam: Present: full ROM. Absent: CVA tenderness (R), CVA tenderness (L) - Neurological Exam Neurological exam: Present: alert, oriented X3, normal gait - Psychiatric Psychiatric exam: Present: normal affect, normal mood - Skin Skin exam: Present: warm, dry, intact, normal color. Absent: rash ED Course Vital Signs 12/05/20 12/05/20 12:55 17:55 Temperature 98.1 F 98.1 F Pulse Rate 60 80 Respiratory 18 18 Rate Blood Pressure 115/85 124/80 [Right] O2 Sat by Pulse 100 98 Oximetry ED Medical Decision Making - Lab Data Result diagrams: 12/05/20 13:58 12/05/20 13:58 - Medical Decision Making 30-year-old -[place] female patient presents with complaints of continued vomiting and abdominal pain today. Patient was seen here yesterday with the same symptoms and was diagnosed with cannabinoid hyperemesis syndrome. Patient reports she was able to tolerate fluids and her pain was improved prior to discharge yesterday, however since returning home her pain is increasing her vomiting is not controlled with ODT Zofran. She denies any fever/chills/sweats, hematemesis/coffee-ground emesis, or stool changes. She rates her current pain as a 9/[address] abdomen yesterday performed and was normal. Patient was noted to be dry at the time with a white count of 19.1 on CBC, elevated AG on CMP, and specific gravity on UA. Labs are repeated, white count 14 today. Patient given Haldol and Reglan and Benadryl-no further vomiting has been observed here in ED. Patient is tolerating apple juice here in ED. Patient to discharge home with capsaicin and Reglan and Benadryl. Recommend follow-up primary care doctor in 2 to 3 days. Discussed signs and symptoms that should prompt immediate return to the emergency department in detail with patient who verbalizes understanding. Her vitals are normal, she is well-appearing, she is stable for discharge home Critical care attestation.: If time is entered above; I have spent that time in minutes in the direct care of this critically ill patient, excluding procedure time. ED Disposition Clinical Impression: Cannabinoid hyperemesis syndrome Disposition: -01 TO HOME OR SELFCARE Is pt being admited?: No Condition: Stable Instructions: What You Need to Know About Marijuana Use, Nausea and Vomiting, Adult Prescriptions: diphenhydrAMINE [Benadryl CAP] 25 mg PO Q8HR PRN #20 capsule PRN Reason: Nausea Capsaicin 60 gm TP QID PRN 3 Days #1 cream..g. PRN Reason: nausea/abdominal pain Metoclopramide [Reglan] 10 mg PO TID PRN #20 tab PRN Reason: Nausea Referrals: [facility] [Provider Group] - 2-3 Days
[2020-12-05] MEDS ORDERED: METOCLOPRAMIDE 10 MG/2 ML INJ IV ONE (13:48)
[2020-12-05] MEDS ORDERED: diphenhydrAMINE 50 MG/ML VIAL IV ONE (13:48)
[2020-12-05 14:21] LABS: Basophils # (Auto) 0.1 K/mm3 (0.0-0.1); Basophils % (Auto) 0.6 % (0.0-1.8); Eosinophils % (Auto) 0.1 % (0.0-4.3); Hematocrit 30.3 % (30.3-42.9); Hemoglobin 9.3 gm/dl (10.1-14.3); Lymphocytes # (Auto) 0.8 K/mm3 (1.2-5.4); Lymphocytes % (Auto) 5.6 % (13.4-35.0); Mean Corpuscular HGB Conc 31 % (30-34); Monocytes % (Auto) 6.7 % (0.0-7.3); Platelet Count 270 K/mm3 (140-440); Red Blood Count 4.37 M/mm3 (3.65-5.03)
[2020-12-05 14:26] LABS: Mean Corpuscular Volume 69 fl (79-97)
[2020-12-05 14:27] LABS: Red Cell Distribution Width 23.4 % (13.2-15.2)
[2020-12-05 14:41] LABS: Alanine Aminotransferase 17 units/L (7-56); Albumin 4.5 g/dL (3.9-5); Blood Urea Nitrogen 10 mg/dL (7-17); Calcium 9.5 mg/dL (8.4-10.2); Hemolysis Index 5
[2020-12-05 14:42] LABS: BUN/Creatinine Ratio 14
[2020-12-05 17:56] VITALS: BP 124/80
== END 2020-12-05 17:57 | disposition home or self-care (01) ==
LOC: ED 12:34
DX: R11.10 Vomiting, unspecified (principal); F17.200 Nicotine dependence, unspecified, uncomplicated; F12.10 Cannabis abuse, uncomplicated; Z79.1 Long term (current) use of non-steroidal anti-inflammatories (NSAID); Z79.899 Other long term (current) drug therapy
CPT/HCPCS: 36415; 80053; 84703; 85025; 96361; 96372; 96374; 96375; 99283; J1200; J1630; J2765; J7120